=== PATIENT | female | born 1930 | race Two or more races ===

== ENCOUNTER 2017-03-24 05:48 | Day surgery (SDC) | payer MEDICARE, OTHER ==
[2017-03-24] MEDS ORDERED: IV NORMAL SALINE 1000 ML BAG IV ONE (05:49)
[2017-03-24] MEDS ORDERED: ONDANSETRON 4 MG/2 ML VIAL IV ONE (05:49)
[2017-03-24] MEDS ORDERED: EPINEPHRINE 1 MG/1 ML AMP ONE (06:44)
[2017-03-24] MEDS ORDERED: LIDOCAINE HCL-MPF 1% 5 ML VIAL ONE (06:44)
[2017-03-24] MEDS ORDERED: LIDOCAINE-MPF 2% 5 ML VIAL ONE (06:44)
[2017-03-24] MEDS ORDERED: TIMOLOL MALEATE 0.5% OPHT DROP 5 ML BOTTLE ONE (06:44)
[2017-03-24] MEDS ORDERED: NEO/POLYMYX B/DEXAME OPHT OINT 3.5 GM TUBE ONE (06:44)
[2017-03-24] MEDS ORDERED: TETRACAINE HCL 0.5% OPHT DROP 2 ML BOTTLE ONE (06:44)
[2017-03-24] MEDS ORDERED: HYALURONATE SODIUM 12.8 MG/0.8 ML DISP.SYRIN ONE (06:45)
[2017-03-24] MEDS ORDERED: HYALURONIDASE,OVINE 200 UNITS/ML VIAL ONE (06:45)
[2017-03-24] MEDS ORDERED: BALANCED SALT IRRIG SOLN COMB2 15 ML IRRIG.SOLN ONE (06:45)
[2017-03-24] MEDS ORDERED: HYALURONATE SODIUM 8.5 MG/0.85 ML DISP.SYRIN ONE ×2 (06:45→10:42)
[2017-03-24] MEDS ORDERED: BUPIVACAINE PF 0.5% 30 ML VIAL ONE (06:45)
[2017-03-24] MEDS ORDERED: ACETYLCHOLINE CHLORIDE 1% OPHT 1 EA KIT ONE (06:45)
[2017-03-24] MEDS ORDERED: CIPROFLOXACIN 0.3% OPHT DROP 2.5 ML BOTTLE ONE (06:48)
[2017-03-24] MEDS ORDERED: FLURBIPROFEN 0.03% OPHT DROP 2.5 ML BOTTLE ONE (06:48)
[2017-03-24] MEDS ORDERED: CYCLOPENTOLATE 1% OPHT DROP 2 ML BOTTLE ONE (06:49)
[2017-03-24] MEDS ORDERED: TROPICAMIDE 1% OPHT DROP 3 ML BOTTLE ONE (06:49)
[2017-03-24] MEDS ORDERED: PHENYLEPHRINE 2.5% OPHT DROP 2 ML BOTTLE ONE (06:49)
[2017-03-24] MEDS ORDERED: BALANCED SALT IRRIG SOLN COMB1 500 ML, VANCOMYCIN FOR BSS PLUS 10 MG, GENTAMICIN SULFAT... IO ONE ×4 (07:15)
[2017-03-24] MEDS ORDERED: VANCOMYCIN FOR CATARACT SURGERY MC ONE ×2 (07:15)
[2017-03-24] MEDS ORDERED: FENTANYL CITRATE 100 MCG/2 ML AMPUL ONE ×2 (09:48→10:09)
[2017-03-24] MEDS ORDERED: BALANCED SALT IRRIG SOLN COMB1 500 ML ONE (09:50)
== END 2017-03-24 12:30 ==
LOC: DS 05:48
PROVIDERS: ATTEND Ophthalmology
DX: H26.9 Unspecified cataract (principal); I73.9 Peripheral vascular disease, unspecified; I25.10 Atherosclerotic heart disease of native coronary artery without angina pectoris; E78.5 Hyperlipidemia, unspecified; D64.9 Anemia, unspecified; J45.909 Unspecified asthma, uncomplicated; E11.22 Type 2 diabetes mellitus with diabetic chronic kidney disease; N18.9 Chronic kidney disease, unspecified; K21.9 Gastro-esophageal reflux disease without esophagitis; F32.9 Major depressive disorder, single episode, unspecified; Z98.890 Other specified postprocedural states
CPT/HCPCS: 71010; A4663; J0171; J1580; J2405; J3010; J3370; J3471; J3490; J7030; J7321; V2632